=== PATIENT | male | born 1985 | race Caucasian/White ===

== ENCOUNTER 2023-07-11 09:06 | Emergency (ER) | payer MEDICAID ==
[~2023-07-11] VITALS: Ht 167.6 cm; Wt 79.0 kg
[2023-07-11 09:08] VITALS: BP 124/69; PULSE 91; RESP 16; TEMP 98.2; O2SAT 99
[2023-07-11] MEDS ORDERED: PRAM56OI TP (10:21)
[2023-07-11] MEDS ORDERED: BISA-81 MT (10:21)
[2023-07-11] MEDS: POLYETHYLENE GLYCOL 3350 (17GM) 1 DOSE PACK PO ONE (10:50)
== END 2023-07-11 11:40 | disposition home or self-care (01) ==
LOC: ER 09:30
DX: K60.2 Anal fissure, unspecified (principal); K59.00 Constipation, unspecified; F20.9 Schizophrenia, unspecified
CPT/HCPCS: 99283; Z7610 ×2